=== PATIENT | male | born 1970 | race African-American/Black ===

== ENCOUNTER 2019-12-18 04:47 | Emergency (ER) | payer OTHER ==
[~2019-12-18] VITALS: Ht 188 cm; Wt 140.6 kg
[2019-12-18 05:17] LABS: ABSOLUTE NEUTROPHILS 4.8 thou/uL (1.4-8.2); BASOPHILS 0.8 % (0.0-2.0); HEMATOCRIT 43.5 % (42.0-52.0); HEMOGLOBIN 14.6 gm/dL (14.0-18.0); LYMPHOCYTES 21.5 % (24.0-44.0); MCH 29.9 pg (26.0-34.0); MCHC 33.4 g/dL (28.0-37.0); MCV 89.4 fL (80.0-100.0); MONOCYTES 5.9 % (1.0-8.0); PLATELET COUNT 192 thou/uL (150-400); POLYS 70.8 % (36.0-66.0); RBC 4.87 mil/uL (4.50-6.00); WBC 6.8 thou/uL (4.0-11.0)
[2019-12-18 05:27] LABS: CALCIUM 8.9 mg/dL (8.5-10.1); CREATININE 1.1 mg/dL (0.7-1.3); POTASSIUM 4.2 mmol/L (3.5-5.1)
[2019-12-18 05:33] LABS: ALBUMIN 3.5 g/dL (3.4-5.0); DIRECT BILIRUBIN 0.1 mg/dL (<0.1-0.2); TOTAL BILIRUBIN 0.6 mg/dL (0.2-1.0); TOTAL PROTEIN 7.6 g/dL (6.4-8.2)
[2019-12-18 05:38] LABS: URINE BILIRUBIN NEGATIVE (Negative); URINE BLOOD NEGATIVE (Negative); URINE CLARITY CLEAR; URINE COLOR YELLOW; URINE GLUCOSE-RANDOM* 3+ (Negative); URINE KETONES NEGATIVE (Negative); URINE LEUKOCYTES-REFLEX NEGATIVE (Negative); URINE NITRITE-REFLEX NEGATIVE (Negative); URINE PROTEIN (DIPSTICK) 2+ (Negative); URINE SPECIFIC GRAVITY 1.025 (1.005-1.035)
[2019-12-18 05:46] LABS: AMP/METHAMP Negative (Negative); BARBITURATES Negative (Negative); BENZODIAZEPINES Negative (Negative); COCAINE Negative (Negative); METHADONE Negative (Negative); OPIATES Negative (Negative); PCP POSITIVE (Negative)
[2019-12-18 05:54] LABS: CASTS None Seen /LPF (None Seen); MUCUS None Seen strn/LPF (None Seen); SQUAMOUS 0-3 Few /LPF (0-3); URINE WBC-REFLEX 0-5 Rare /HPF (0-5)
[2019-12-18 05:55] LABS: BACTERIA-REFLEX None Seen /HPF (None Seen); CRYSTALS None Seen /LPF (None Seen); URINE RBC 0-2 Rare /HPF (0-2)
[2019-12-18 07:25] VITALS: BP 154/90
--- NOTE | 2019-12-18 15:35 | EKG ---
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 : 1970 Requested By: Devin Anderson Order Number: [id number] MD: Sandeep Perez Measurements Intervals [place] Rate: 91 P: 24 [place]: 160 QRS: -25 QRSD: 84 T: 54 QT: 369 QTc: 455 Interpretive Statements Sinus rhythm Probable left atrial enlargement Abnormal R-wave progression, early transition Left ventricular hypertrophy No previous ECG available for comparison Electronically Signed On 12-18-2019 15:35:31 CDT by Sandeep Perez [email or web address] <ELECTRONICALLY SIGNED> By: Sandeep Perez MD, FACC 12/18/19 1535 [id number] Sandeep Perez MD, [facility] /EPI
== END 2019-12-18 07:37 | disposition still patient (30) ==
LOC: ER 04:47
PROVIDERS: Emergency Medicine
DX: R11.2 Nausea with vomiting, unspecified (principal); F19.90 Other psychoactive substance use, unspecified, uncomplicated

== ENCOUNTER 2020-01-07 04:32 | Emergency (ER) | payer OTHER ==
[~2020-01-07] VITALS: Ht 182.9 cm; Wt 99.8 kg
[2020-01-07 04:52] LABS: ABSOLUTE NEUTROPHILS 4.7 thou/uL (1.4-8.2); BASOPHILS 0.6 % (0.0-2.0); EOSINOPHILS 1.4 % (0.0-3.0); HEMATOCRIT 43.1 % (42.0-52.0); HEMOGLOBIN 14.5 gm/dL (14.0-18.0); LYMPHOCYTES 23.8 % (24.0-44.0); MCH 29.7 pg (26.0-34.0); MCHC 33.6 g/dL (28.0-37.0); MCV 88.4 fL (80.0-100.0); MONOCYTES 7.9 % (1.0-8.0); PLATELET COUNT 210 thou/uL (150-400); POLYS 66.3 % (36.0-66.0); RBC 4.88 mil/uL (4.50-6.00); RDW 13.3 % (10.5-14.5); WBC 7.1 thou/uL (4.0-11.0)
[2020-01-07 05:14] LABS: ANION GAP 11 mmol/L (7-16); BUN 14 mg/dL (7-18); CALCIUM 8.4 mg/dL (8.5-10.1); CHLORIDE 100 mmol/L (98-107); CO2 27 mmol/L (21-32); GLUCOSE 283 mg/dL (74-106); POTASSIUM 3.6 mmol/L (3.5-5.1); SODIUM 138 mmol/L (136-145)
[2020-01-07 05:24] LABS: ALBUMIN 3.6 g/dL (3.4-5.0); SALICYLATE < 2.8 mg/dL (2.8-20.0); SGOT 21 U/L (15-37); SGPT 27 U/L (30-65); TOTAL BILIRUBIN 0.4 mg/dL (0.2-1.0); TOTAL PROTEIN 7.9 g/dL (6.4-8.2); TROPONIN-I <0.06 ng/mL (<0.06)
--- NOTE | 2020-01-07 07:50 | EKG ---
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: : 1970 Requested By: Ari Castro Order Number: [id number] MD: Damir Plunkett Measurements Intervals [place] Rate: 100 P: 30 [place]: 159 QRS: -26 QRSD: 84 T: 68 QT: 357 QTc: 461 Interpretive Statements Sinus tachycardia Left ventricular hypertrophy Poor R wave progression Compared to ECG 12/18/2019 04:58:27 No significant change was found Electronically Signed On 01-07-2020 7:50:18 GERONTOLOGICAL NURSE PRACTITIONER by Damir Plunkett [email or web address] <ELECTRONICALLY SIGNED> By: Damir Plunkett MD, FAC 01/07/20 0750 0448 Damir Plunkett MD, [facility] /EPI
[2020-01-07 15:25] VITALS: BP 178/135
== END 2020-01-07 15:37 | disposition home or self-care (01) ==
LOC: ER 04:32
PROVIDERS: Emergency Medicine
DX: F16.10 Hallucinogen abuse, uncomplicated (principal); R41.82 Altered mental status, unspecified; F91.1 Conduct disorder, childhood-onset type; I10 Essential (primary) hypertension; E11.9 Type 2 diabetes mellitus without complications; E78.5 Hyperlipidemia, unspecified